=== PATIENT | female | born 1975 | race Caucasian/White ===

== ENCOUNTER 2016-12-03 16:18 | Emergency (ER) | payer BC ==
[2016-12-03 16:25] VITALS: BP 147/115
--- NOTE | 2016-12-03 16:26 | ED Physician Documentation ---
PD HPI FEMALE - Stated complaint Stated Complaint: FEMALE - Chief complaint Chief Complaint: General - History obtained from History obtained from: Patient - History of Present Illness Timing - onset: How many days ago (several) Timing - duration: Days Timing - details: Gradual onset, Still present (onset of redness and burning pain periurethral, worse with urinating, but also with wiping.) Associated symptoms: Vaginal pain, Vaginal discharge, Genital sore/lesion ( redness periurethral). No: Fever, Dysuria, Urinary frequency Similar symptoms before: Has not had sx before Recently seen: Clinic (walk in in [place] and Dx with apparent yeast infection. Not improved with Diflucan taken 2 days ago. Considerable discomfort and she says the rash/pain worsened a lot with use of topical lidocaine.) Review of Systems Constitutional: denies: Fever, Chills Throat: denies: Sore throat GI: denies: Vomiting, Diarrhea Skin: reports: Lesions (periurethral area). 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 : None HEENT: Dental implants Psych: Depression Musculoskeletal: None Derm: None - Past Surgical History Past Surgical History: Yes General: Bowel surgery Ortho: Other - Present Medications Home Medications: Ambulatory Orders Medication Instructions Recorded Confirmed Desvenlafaxine Succinate [Pristiq 100 mg PO DAILY 10/21/14 12/03/16 ER] Lisdexamfetamine Dimesylate 50 mg PO 0800,1200 10/21/14 12/03/16 [Vyvanse] Minocycline HCl 100 mg PO DAILY 10/21/14 12/03/16 Quetiapine Fumarate [Seroquel] 50 mg PO QPM 10/21/14 12/03/16 Spironolactone 50 mg PO DAILY 10/21/14 12/03/16 HYDROcod/ACETAM 5/325 [[place] 5/325] 1 ea PO Q6H PRN #15 tablet 10/05/15 12/03/16 - Allergies Allergies/Adverse Reactions: Allergies Allergy/AdvReac Type Severity Reaction Status Date / Time acetaminophen [From Lortab] Allergy Itching Verified 10/21/14 08:39 hydrocodone bitartrate * Allergy Itching Verified 09/09/15 08:39 [From Lortab] prednisone AdvReac Unknown Verified 10/05/15 10:01 - Social History Does the pt smoke?: No Smoking Status: Never smoker Does the pt drink ETOH?: No Does the pt have substance abuse?: No PD ED PE NORMAL - Vitals Vital signs reviewed: Yes - General General: Alert and oriented X 3, Well developed/nourished, Other (she is upset and tearful. Not in notable pain at the moment.) - HEENT HEENT: Pharynx benign - Neck Neck: Supple, no meningeal sign, No adenopathy - Abdomen Abdomen: Soft, Non tender - Female Female : Segmental Paver Installer present, Other (double check the diagnosis from Urgent Care couple days ago. There is redness with swelling periurethrally and inner labia, with some fissure lines superficially in mucosal folds periurethrally. Intravaginally with some thick to milky white discharge.) - Back Back: No CVA TTP - Derm Derm: Normal color, Warm and dry Results - Vitals Vitals: Oxygen O2 Source Room air - Labs Labs: Microbiology 12/03/16 16:52 Wet Prep - Final Genital - Cervix Laboratory Tests 12/03/16 16:52 C.trachomatis RNA (TMA) NOT DETECTED Chlamydia/GC Comment SEE NOTE N.gonorrhoeae RNA (TMA) NOT DETECTED PD MEDICAL DECISION MAKING - ED course Complexity details: considered differential (redness with swelling inner labial and periurethral with yeast-like white rash intravaginallly. There are fissures developed in mucosal folds periurethrally. Looks like yeast vulvovaginal rash. Intravaginal appears yeast white thicker, but some milky character as well. Await culture and wet prep. ), d/w patient Departure - Departure Disposition: 01 Home, Self Care Clinical Impression: Vulvovaginitis due to yeast Condition: Stable Record reviewed to determine appropriate education?: Yes Instructions: ED Vaginal Infec Fungal Cheryl, ED Vaginitis Vulvo Ch Follow-Up: DOM JONES MD [Primary Care Provider] - Comments: This does look like a yeast infection with the irritation and fissures in the creases. Those do look very painful. I would use the betamethasone and clotrimazole topically in the rash area and on the inner labial guevara 3-4 times daily for a few days until resolved. Use Tylenol or ibuprofen if needed for pains. Add the oxycodone just if needed for worse pain. I would use coolness such as cool towels or such to the area may help as well. Discharge Date/Time: 12/03/16 17:29
[2016-12-03] MEDS ORDERED: BETAMETHASONE AUG 0.05% CREAM 15 GM TUBE TOP STA (16:54)
[2016-12-03] MEDS ORDERED: oxyCODONE/ACET 5/325 Prepack 4 PO STA (16:54)
[2016-12-03] MEDS ORDERED: CLOTRIMAZOLE 1% CREAM 15 GM TUBE TOP STA (16:54)
== END 2016-12-03 17:29 | disposition home or self-care (01) ==
LOC: ED 16:18
DX: B37.3 Candidiasis of vulva and vagina (principal)
CPT/HCPCS: 87210; 87491; 87591; 99283; A9270

== ENCOUNTER 2017-07-23 21:06 | Emergency (ER) | payer BC ==
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
[2017-07-24] MEDS ORDERED: AZITHROMYCIN 250 MG TABLET PO STA (02:25)
[2017-07-24] MEDS ORDERED: LIDOCAINE 1% 2 ML VIAL SUBQ ONE (02:26)
[2017-07-24] MEDS ORDERED: cefTRIAXone 250 MG VIAL IM STA (02:26)
[2017-07-24] MEDS ORDERED: metroNIDAZOLE 250 MG TABLET PO STA (02:26)
[2017-07-24] MEDS ORDERED: LORazepam 0.5 MG TABLET PO STA (02:33)
[2017-07-24 03:19] VITALS: BP 140/107
[2017-07-25 13:36] LABS: HEPATITIS B SURFACE ANTIGEN NON-REACTIVE (NON-REACTIVE)
== END 2017-07-24 03:01 | disposition home or self-care (01) ==
LOC: ED 21:06
DX: T76.21XA Adult sexual abuse, suspected, initial encounter (principal); Z97.5 Presence of (intrauterine) contraceptive device
CPT/HCPCS: 36415; 86317; 86704; 87340; 96372; 99283; A9270

== ENCOUNTER 2018-04-09 07:33 | Outpatient (CLI) | payer BC | END 2018-04-09 07:34 | disposition short-term general hospital (02) | LOC: EMS 07:33 | PROVIDERS: ATTEND Surgery | DX: R07.89 Other chest pain (principal); R00.2 Palpitations; R42 Dizziness and giddiness | CPT/HCPCS: A0425; A0427 ==

== ENCOUNTER 2018-05-07 05:19 | Outpatient (CLI) | payer BC | END 2018-05-07 05:20 | disposition critical access hospital (66) | LOC: EMS 05:19 | PROVIDERS: ATTEND Surgery | DX: R42 Dizziness and giddiness (principal); R07.2 Precordial pain; R06.02 Shortness of breath; R50.9 Fever, unspecified; R11.10 Vomiting, unspecified | CPT/HCPCS: A0425; A0427 ==

== ENCOUNTER 2018-05-07 05:53 | Emergency (ER) | payer BC ==
[2018-05-07] MEDS ORDERED: SODIUM CHLORIDE 0.9% 1,000 ML IV ONE ×2 (06:00→10:04)
[2018-05-07] MEDS ORDERED: PROMETHAZINE INJ 12.5 MG in SODIUM CHLORIDE 0.9% 50 ML IV STA (06:00)
[2018-05-07] MEDS ORDERED: ONDANSETRON 4 MG/2 ML VIAL IVP STA ×2 (06:00→10:55)
--- NOTE | 2018-05-07 06:35 | XRAY Report ---
Reason: chest pain Procedure Date: 05/07/2018 Accession Number: [id number] / [id number] Procedure: XR - Chest 1 View X-Ray CPT Code: 48548 FULL RESULT: EXAM: CHEST RADIOGRAPHY EXAM DATE: 05/07/2018 06:21 AM. CLINICAL HISTORY: Chest pain. COMPARISON: XR ACUTE ABDOMEN SERIES 03/01/2010 12:17 PM. TECHNIQUE: 1 view. FINDINGS: Lungs/Pleura: No focal opacities evident. No pleural effusion. No pneumothorax. Mediastinum: Likely small hiatal hernia. No cardiomegaly. Other: None. IMPRESSION: Likely small hiatal hernia. No evidence of acute cardiopulmonary disease. RADIA
--- NOTE | 2018-05-07 06:37 | ED Physician Documentation ---
History of Present Illness - Stated complaint Stated Complaint: DIZZY - Chief complaint Chief Complaint: General - History obtained from History obtained from: Patient - History of Present Illness Timing: How many hours ago (4) Pain level max: 0 Pain level now: 0 Severity Comments: mild Quality: dizziness, lightheadedness Radiates to: nonradiating Improved by: laying down Worsened by: Standing Associated symptoms: Shortness of breath Review of Systems Ten Systems: 10 systems reviewed and negative Constitutional: reports: Reviewed and negative Eyes: reports: Reviewed and negative Ears: reports: Reviewed and negative Nose: reports: Reviewed and negative Throat: reports: Reviewed and negative Cardiac: reports: Reviewed and negative Respiratory: reports: Reviewed and negative GI: reports: Reviewed and negative : reports: Reviewed and negative Skin: reports: Reviewed and negative Musculoskeletal: reports: Reviewed and negative Neurologic: reports: Reviewed and negative Psychiatric: reports: Reviewed and negative Endocrine: reports: Reviewed and negative Immunocompromised: reports: Reviewed and negative PD PAST MEDICAL HISTORY - Past Medical History Past Medical History: Yes Cardiovascular: None Respiratory: None Neuro: None Endocrine/Autoimmune: None GI: Ulcerative colitis 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 HEENT: Dental implants Psych: Depression Musculoskeletal: None Derm: None - Past Surgical History Past Surgical History: Yes General: Bowel surgery Ortho: Other - Present Medications Home Medications: Ambulatory Orders Medication Instructions Recorded Confirmed Desvenlafaxine Succinate [Pristiq 100 mg PO DAILY 10/21/14 12/03/16 ER] Lisdexamfetamine Dimesylate 50 mg PO 0800,1200 10/21/14 12/03/16 [Vyvanse] Minocycline HCl 100 mg PO DAILY 10/21/14 12/03/16 Quetiapine Fumarate [Seroquel] 50 mg PO QPM 10/21/14 12/03/16 Spironolactone 50 mg PO DAILY 10/21/14 12/03/16 HYDROcod/ACETAM 5/325 [[place] 5/325] 1 ea PO Q6H PRN #15 tablet 10/05/15 12/03/16 LORazepam [Ativan] 0.5 mg PO Q6H PRN #20 tablet 07/24/17 Ondansetron Odt [Zofran] 4 mg TL Q6H PRN #10 tablet 05/07/18 - Allergies Allergies/Adverse Reactions: Allergies Allergy/AdvReac Type Severity Reaction Status Date / Time acetaminophen [From Lortab] Allergy Itching Verified 07/23/17 21:13 hydrocodone bitartrate * Allergy Itching Verified 07/23/17 21:13 [From Lortab] prednisone AdvReac Unknown Verified 07/23/17 21:13 - Social History Does the pt smoke?: No Smoking Status: Never smoker Does the pt drink ETOH?: No Does the pt have substance abuse?: No - Family History Family history: reports: Other (Reviewed and not pertinent) - Immunizations Immunizations are current?: No - POLST Patient has POLST: No PD ED PE NORMAL - Vitals Vital signs reviewed: Yes - General General: Alert and oriented X 3, No acute distress - HEENT HEENT: PERRL - Neck Neck: Supple, no meningeal sign - Cardiac Cardiac: RRR, No murmur - Respiratory Respiratory: Clear bilaterally - Abdomen Abdomen: Normal bowel sounds, Soft, Non tender, Non distended - Derm Derm: Warm and dry - Extremities Extremities: No deformity - Neuro Neuro: Alert and oriented X 3 - Psych Psych: Normal mood, Normal affect Results - Vitals Vitals: Vital Signs - 24 hr 05/07/18 05/07/18 05/07/18 06:15 06:38 06:39 Temperature 36.5 C Heart Rate 89 84 82 Respiratory 16 16 16 Rate Blood Pressure 117/89 H 111/90 H O2 Saturation 100 98 97 05/07/18 05/07/18 05/07/18 07:03 07:34 08:00 Temperature Heart Rate 82 83 76 Respiratory 16 16 16 Rate Blood Pressure 121/86 H 120/96 H 117/85 H O2 Saturation 99 98 99 05/07/18 05/07/18 05/07/18 10:00 11:00 13:00 Temperature Heart Rate 77 69 74 Respiratory 16 18 18 Rate Blood Pressure 108/81 H 113/86 H 101/61 O2 Saturation 98 98 05/07/18 14:09 Temperature Heart Rate 71 Respiratory 16 Rate Blood Pressure 121/87 H O2 Saturation 96 Oxygen O2 Source Room air - Labs Labs: Laboratory Tests 05/07/18 05/07/18 05/07/18 06:20 07:50 07:50 WBC 3.1 L RBC 3.75 L Hgb 10.6 L Hct 32.8 L MCV 87.6 MCH 28.3 MCHC 32.3 RDW 19.1 H Plt Count 125 L MPV 9.0 Neut # (Auto) 2.1 Lymph # (Auto) 0.5 L [place] # (Auto) 0.5 Eos # (Auto) 0.0 Baso # (Auto) 0.0 Absolute Nucleated RBC 0.00 Nucleated RBC % 0.0 D-Dimer Sodium 132 L Potassium 4.0 Chloride 95 L Carbon Dioxide 24 Anion Gap 13.0 BUN 13 Creatinine 0.4 Estimated GFR (MDRD) 174 Glucose 79 Calcium 7.3 L Total Bilirubin 1.2 H AST 210 H ALT 78 H Alkaline Phosphatase 77 Troponin I Total Protein 5.9 L Albumin 3.3 Globulin 2.6 Albumin/Globulin Ratio 1.3 Lipase 48 Urine Color Urine Clarity Urine pH Ur Specific [place] Urine Protein Urine Glucose (UA) Urine Ketones Urine Occult Blood Urine Nitrite Urine Bilirubin Urine Urobilinogen Ur Leukocyte Esterase Ur Microscopic Review Urine Culture Comments Influenza A (Rapid) Negative Influenza B (Rapid) Negative 05/07/18 05/07/18 05/07/18 07:50 07:50 12:25 WBC RBC Hgb Hct MCV MCH MCHC RDW Plt Count MPV Neut # (Auto) Lymph # (Auto) [place] # (Auto) Eos # (Auto) Baso # (Auto) Absolute Nucleated RBC Nucleated RBC % D-Dimer 311.4 H Sodium Potassium Chloride Carbon Dioxide Anion Gap BUN Creatinine Estimated GFR (MDRD) Glucose Calcium Total Bilirubin AST ALT Alkaline Phosphatase Troponin I < 0.04 Total Protein Albumin Globulin Albumin/Globulin Ratio Lipase Urine Color DARK YELLOW Urine Clarity CLEAR Urine pH 6.0 Ur Specific [place] >=1.030 H Urine Protein TRACE Urine Glucose (UA) NEGATIVE Urine Ketones >=80 H Urine Occult Blood NEGATIVE Urine Nitrite NEGATIVE Urine Bilirubin NEGATIVE Urine Urobilinogen 0.2 (NORMAL) Ur Leukocyte Esterase NEGATIVE Ur Microscopic Review NOT INDICATED Urine Culture Comments NOT INDICATED Influenza A (Rapid) Influenza B (Rapid) PD MEDICAL DECISION MAKING - ED course Complexity details: reviewed results, re-evaluated patient, considered differential, d/w patient ED course: 42-year-old female with generalized weakness and lightheadedness. Labs pending at time of sign out to incoming provider. Departure - Departure Disposition: 01 Home, Self Care Clinical Impression: Vomiting, Dehydration Condition: Stable Instructions: ED Dehydration Follow-Up: SATNAM DUNN MD [Primary Care Provider] - Prescriptions: Ondansetron Odt [Zofran] 4 mg TL Q6H PRN #10 tablet PRN Reason: Nausea / Vomiting Discharge Date/Time: 05/07/18 14:09
[2018-05-07 08:00] LABS: BASOPHILS % (AUTO) 1.5 %; EOSINOPHILS % (AUTO) 1.1 %; HGB - HEMOGLOBIN 10.6 g/dL (12.0-16.0); LYMPHOCYTES # (AUTO) 0.5 10^3/uL (1.5-3.5); LYMPHOCYTES % (AUTO) 15.3 %; MEAN CORPUSCULAR HEMOGLOBIN 28.3 pg (27.0-31.0); MEAN CORPUSCULAR HGB CONC 32.3 g/dL (32.0-36.0); MEAN CORPUSCULAR VOLUME 87.6 fL (81.0-99.0); MONOCYTES # (AUTO) 0.5 10^3/uL (0.0-1.0); MONOCYTES % (AUTO) 16.1 %; NEUTROPHILS # (AUTO) 2.1 10^3/uL (1.5-6.6); PLT - PLATELET COUNT 125 10^3/uL (130-450); RED BLOOD COUNT 3.75 10^6/uL (4.20-5.40); RED CELL DISTRIBUTION WIDTH 19.1 % (12.0-15.0); WHITE BLOOD COUNT 3.1 x10^3/uL (4.8-10.8)
[2018-05-07 08:08] LABS: ALBUMIN 3.3 g/dL (3.2-5.5); ALBUMIN/GLOBULIN RATIO 1.3 (1.0-2.2); BILIRUBIN,TOTAL 1.2 mg/dL (0.2-1.0); CALCIUM 7.3 mg/dL (8.5-10.3); CREATININE 0.4 mg/dL (0.4-1.0); TOTAL PROTEIN 5.9 g/dL (6.7-8.2)
[2018-05-07 12:38] LABS: GLUCOSE, URINE (UA) NEGATIVE (NEGATIVE); KETONES,URINE (UA) >=80 mg/dL (NEGATIVE); LEUKOCYTE ESTERASE, URINE NEGATIVE (NEGATIVE); NITRITE,URINE NEGATIVE (NEGATIVE); OCCULT BLOOD,URINE NEGATIVE (NEGATIVE); PROTEIN,URINE TRACE mg/dL (NEGATIVE); UROBILINOGEN,URINE 0.2 (NORMAL) E.U./dL (NORMAL)
[2018-05-07] MEDS ORDERED: IOPAMIDOL-300 100 ML VIAL ONE (12:49)
[2018-05-07 12:54] LABS: BILIRUBIN,URINE NEGATIVE (NEGATIVE); CLARITY,URINE CLEAR (CLEAR); ICTOTEST,URINE NEGATIVE
[2018-05-07] MEDS ORDERED: IOPAMIDOL-300 100 ML VIAL IVP ONE (13:28)
--- NOTE | 2018-05-07 13:39 | CT Report ---
Reason: dyspnea tachy elevated d-dimer Procedure Date: 05/07/2018 Accession Number: [id number] / [id number] Procedure: CT - ANGIO CHEST W/WO CPT Code: FULL RESULT: EXAM: CT ANGIOGRAM CHEST EXAM DATE: 05/07/2018 01:05 PM. CLINICAL HISTORY: Dyspnea tachy elevated d-dimer. COMPARISON: CHEST 1 VIEW 05/07/2018 6:07 AM. TECHNIQUE: Routine helical imaging was performed through the chest in the pulmonary arterial phase. IV Contrast: ISOVUE 300 80mL. Reconstructions: Coronal 3-D MIP reconstructions.Sagittal and coronal. In accordance with CT protocol optimization, one or more of the following dose reduction techniques were utilized for this exam: automated exposure control, adjustment of mA and/or KV based on patient size, or use of iterative reconstructive technique. FINDINGS: Pulmonary Arteries: Diagnostic quality: Mildly limited due to motion artifact. No pulmonary emboli are identified through the proximal segmental level. RV/LV is within normal limits. There is no interventricular septal bowing. There is no reflux of contrast material in the IVC. Lungs/Pleura: The lungs are clear aside from mild dependent atelectasis. No consolidation, pleural effusion or pneumothorax. The airways are patent. No mass. Mediastinum: The heart is normal in size. There is no pericardial effusion. No lymphadenopathy. There is a moderate to large hiatal hernia. Thoracic esophagus appears mildly thickened. Thoracic Aorta: Unremarkable. Upper Abdomen: Diffusely hypoattenuating liver parenchyma noted. Other: Breast implants in place. IMPRESSION: 1. No pulmonary emboli identified. Mildly limited exam due to motion artifact. 2. Moderate to large hiatal hernia. The thoracic esophagus appears mildly thickened, which could be due to esophagitis or reflux. 3. Hepatic steatosis. RADIA
--- NOTE | 2018-05-07 13:48 | ED Physician Documentation ---
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 HEENT: Dental implants Psych: Depression Musculoskeletal: None Derm: None - Past Surgical History Past Surgical History: Yes General: Bowel surgery Ortho: Other - Present Medications Home Medications: Ambulatory Orders Medication Instructions Recorded Confirmed Desvenlafaxine Succinate [Pristiq 100 mg PO DAILY 10/21/14 12/03/16 ER] Lisdexamfetamine Dimesylate 50 mg PO 0800,1200 10/21/14 12/03/16 [Vyvanse] Minocycline HCl 100 mg PO DAILY 10/21/14 12/03/16 Quetiapine Fumarate [Seroquel] 50 mg PO QPM 10/21/14 12/03/16 Spironolactone 50 mg PO DAILY 10/21/14 12/03/16 HYDROcod/ACETAM 5/325 [[place] 5/325] 1 ea PO Q6H PRN #15 tablet 10/05/15 12/03/16 LORazepam [Ativan] 0.5 mg PO Q6H PRN #20 tablet 07/24/17 Ondansetron Odt [Zofran] 4 mg TL Q6H PRN #10 tablet 05/07/18 - Allergies Allergies/Adverse Reactions: Allergies Allergy/AdvReac Type Severity Reaction Status Date / Time acetaminophen [From Lortab] Allergy Itching Verified 07/23/17 21:13 hydrocodone bitartrate * Allergy Itching Verified 07/23/17 21:13 [From Lortab] prednisone AdvReac Unknown Verified 07/23/17 21:13 - Social History Does the pt smoke?: No Smoking Status: Never smoker Does the pt drink ETOH?: No Does the pt have substance abuse?: No - Immunizations Immunizations are current?: No - POLST Patient has POLST: No Results - Vitals Vitals: Vital Signs - 24 hr 05/07/18 05/07/18 05/07/18 06:15 06:38 06:39 Temperature 36.5 C Heart Rate 89 84 82 Respiratory 16 16 16 Rate Blood Pressure 117/89 H 111/90 H O2 Saturation 100 98 97 0305/07/18 05/07/18 07:03 07:34 08:00 Temperature Heart Rate 82 83 76 Respiratory 16 16 16 Rate Blood Pressure 121/86 H 120/96 H 117/85 H O2 Saturation 99 98 99 05/07/18 05/07/18 05/07/18 10:00 11:00 13:00 Temperature Heart Rate 77 69 74 Respiratory 16 18 18 Rate Blood Pressure 108/81 H 113/86 H 101/61 O2 Saturation 98 98 Oxygen O2 Source Room air - Labs Labs: Laboratory Tests 05/07/18 05/07/18 05/07/18 06:20 07:50 07:50 WBC 3.1 L RBC 3.75 L Hgb 10.6 L Hct 32.8 L MCV 87.6 MCH 28.3 MCHC 32.3 RDW 19.1 H Plt Count 125 L MPV 9.0 Neut # (Auto) 2.1 Lymph # (Auto) 0.5 L [place] # (Auto) 0.5 Eos # (Auto) 0.0 Baso # (Auto) 0.0 Absolute Nucleated RBC 0.00 Nucleated RBC % 0.0 D-Dimer Sodium 132 L Potassium 4.0 Chloride 95 L Carbon Dioxide 24 Anion Gap 13.0 BUN 13 Creatinine 0.4 Estimated GFR (MDRD) 174 Glucose 79 Calcium 7.3 L Total Bilirubin 1.2 H AST 210 H ALT 78 H Alkaline Phosphatase 77 Troponin I Total Protein 5.9 L Albumin 3.3 Globulin 2.6 Albumin/Globulin Ratio 1.3 Lipase 48 Urine Color Urine Clarity Urine pH Ur Specific [place] Urine Protein Urine Glucose (UA) Urine Ketones Urine Occult Blood Urine Nitrite Urine Bilirubin Urine Urobilinogen Ur Leukocyte Esterase Ur Microscopic Review Urine Culture Comments Influenza A (Rapid) Negative Influenza B (Rapid) Negative 05/07/18 05/07/18 05/07/18 07:50 07:50 12:25 WBC RBC Hgb Hct MCV MCH MCHC RDW Plt Count MPV Neut # (Auto) Lymph # (Auto) [place] # (Auto) Eos # (Auto) Baso # (Auto) Absolute Nucleated RBC Nucleated RBC % D-Dimer 311.4 H Sodium Potassium Chloride Carbon Dioxide Anion Gap BUN Creatinine Estimated GFR (MDRD) Glucose Calcium Total Bilirubin AST ALT Alkaline Phosphatase Troponin I < 0.04 Total Protein Albumin Globulin Albumin/Globulin Ratio Lipase Urine Color DARK YELLOW Urine Clarity CLEAR Urine pH 6.0 Ur Specific [place] >=1.030 H Urine Protein TRACE Urine Glucose (UA) NEGATIVE Urine Ketones >=80 H Urine Occult Blood NEGATIVE Urine Nitrite NEGATIVE Urine Bilirubin NEGATIVE Urine Urobilinogen 0.2 (NORMAL) Ur Leukocyte Esterase NEGATIVE Ur Microscopic Review NOT INDICATED Urine Culture Comments NOT INDICATED Influenza A (Rapid) Influenza B (Rapid) - Rads (name of study) CTA chest Radiology: Prelim report reviewed (Impression: 1. No pulmonary emboli identified. Mildly limited exam due to motion artifact. 2. Moderate to large hiatal hernia. Thoracic esophagus appears mildly thickened, which could be due to esophagitis or reflux. 3. Hepatic steatosis.), EMP read indepedently, See rad report Procedures - IVC sono (time) 1300 Bedside IVC sono: IVC measures (cm) (1.94), Euvolemia PD MEDICAL DECISION MAKING - ED course Complexity details: considered differential, d/w patient, d/w family ED course: 42-year-old female with acute nausea and vomiting appears dehydrated and she is administered saline with improvement in her hydration. She has had an episode of chest pain with dyspnea and this was the second episode in the past month and her d-dimer was elevated and she did not have PE on exam. She does have fatty infiltrate of the liver and elevated transamminases and she has had this previously as well. She will follow up with her PMD as well as the project construction manager. Departure - Departure Disposition: 01 Home, Self Care Clinical Impression: Vomiting, Dehydration Condition: Stable Instructions: ED Dehydration Follow-Up: SATNAM DUNN MD [Primary Care Provider] - Prescriptions: Ondansetron Odt [Zofran] 4 mg TL Q6H PRN #10 tablet PRN Reason: Nausea / Vomiting
[2018-05-07 14:10] VITALS: BP 121/87
== END 2018-05-07 14:09 | disposition home or self-care (01) ==
LOC: EDUNIT# → ED 05:53
DX: E86.0 Dehydration (principal); R11.2 Nausea with vomiting, unspecified; R53.1 Weakness; R42 Dizziness and giddiness; R07.9 Chest pain, unspecified; R06.00 Dyspnea, unspecified; R79.89 Other specified abnormal findings of blood chemistry; K76.0 Fatty (change of) liver, not elsewhere classified; R74.0 Nonspecific elevation of levels of transaminase and lactic acid dehydrogenase [LDH]; K44.9 Diaphragmatic hernia without obstruction or gangrene
CPT/HCPCS: 36415; 71045; 71275; 80053; 81001; 81003; 83690; 84484; 85025; 85379; 87086; 87275; 87276; 93005; 96361; 96365; 96375; 96376; 99283; 99284

== ENCOUNTER 2018-06-21 02:24 | Outpatient (CLI) | payer BC | END 2018-06-21 02:25 | disposition critical access hospital (66) | LOC: EMS 02:24 | PROVIDERS: ATTEND Surgery | DX: T43.592A Poisoning by other antipsychotics and neuroleptics, intentional self-harm, initial encounter (principal) | CPT/HCPCS: A0425; A0429 ==

== ENCOUNTER 2018-06-21 02:56 | Emergency (ER) | payer BC ==
[2018-06-21] MEDS ORDERED: MAG HYDROX/AL HYDROX/SIMETH 30 ML UDC PO STA ×2 (03:30→11:31)
[2018-06-21] MEDS ORDERED: LIDOCAINE VISCOUS 2% 15 ML UDC MM STA (03:30)
[2018-06-21 04:06] LABS: BASOPHILS # (AUTO) 0.1 10^3/uL (0.0-0.1); BASOPHILS % (AUTO) 3.2 %; EOSINOPHILS # (AUTO) 0.1 10^3/uL (0.0-0.7); EOSINOPHILS % (AUTO) 3.4 %; HGB - HEMOGLOBIN 12.1 g/dL (12.0-16.0); LYMPHOCYTES # (AUTO) 1.1 10^3/uL (1.5-3.5); LYMPHOCYTES % (AUTO) 31.3 %; MEAN CORPUSCULAR HEMOGLOBIN 27.8 pg (27.0-31.0); MEAN CORPUSCULAR HGB CONC 32.5 g/dL (32.0-36.0); MEAN CORPUSCULAR VOLUME 85.4 fL (81.0-99.0); MEAN PLATELET VOLUME 8.6 fL (7.9-10.8); MONOCYTES # (AUTO) 0.4 10^3/uL (0.0-1.0); MONOCYTES % (AUTO) 10.5 %; NEUTROPHILS # (AUTO) 1.8 10^3/uL (1.5-6.6); NEUTROPHILS % (AUTO) 51.6 %; PLT - PLATELET COUNT 232 10^3/uL (130-450); RED BLOOD COUNT 4.33 10^6/uL (4.20-5.40); RED CELL DISTRIBUTION WIDTH 17.1 % (12.0-15.0); WHITE BLOOD COUNT 3.4 x10^3/uL (4.8-10.8)
[2018-06-21 04:21] LABS: ACETAMINOPHEN < 10 ug/mL (10-30); ALBUMIN 3.6 g/dL (3.2-5.5); ALBUMIN/GLOBULIN RATIO 1.1 (1.0-2.2); ALKALINE PHOSPHATASE 58 IU/L (42-121); ALT ALANINE AMINOTRANSFERASE 48 IU/L (10-60); AST ASPARTATE AMINOTRANSFERASE 90 IU/L (10-42); BILIRUBIN,TOTAL 0.5 mg/dL (0.2-1.0); BUN - BLOOD UREA NITROGEN 12 mg/dL (6-20); CALCIUM 8.7 mg/dL (8.5-10.3); CARBON DIOXIDE - CO2 24 mmol/L (21-32); CHLORIDE 102 mmol/L (101-111); CREATININE 0.4 mg/dL (0.4-1.0); GFR - MDRD 174 (>89); GLUCOSE 94 mg/dL (70-100); LIPASE 51 U/L (22-51); SALICYLATE < 6.0 mg/dL; SODIUM 141 mmol/L (135-145); TOTAL PROTEIN 6.8 g/dL (6.7-8.2)
[2018-06-21 04:27] LABS: MUDS CUTOFF CONCENTRATIONS CUTOFF CONC BELOW:
[2018-06-21 04:29] LABS: BILIRUBIN,URINE NEGATIVE (NEGATIVE); GLUCOSE, URINE (UA) NEGATIVE (NEGATIVE); KETONES,URINE (UA) NEGATIVE (NEGATIVE); LEUKOCYTE ESTERASE, URINE NEGATIVE (NEGATIVE); NITRITE,URINE NEGATIVE (NEGATIVE); OCCULT BLOOD,URINE NEGATIVE (NEGATIVE); PH,URINE 6.5 PH (5.0-7.5); PROTEIN,URINE TRACE mg/dL (NEGATIVE); UROBILINOGEN,URINE 0.2 (NORMAL) E.U./dL (NORMAL)
[2018-06-21 04:30] LABS: CLARITY,URINE CLEAR (CLEAR); HCG UR QUAL NEGATIVE
[2018-06-21 04:42] LABS: AMPHETAMINE SCREEN,URINE NEGATIVE (NEGATIVE); BENZODIAZEPINES SCREEN, URINE NEGATIVE (NEGATIVE); COCAINE SCREEN URINE NEGATIVE (NEGATIVE); METHADONE SCREEN, URINE NEGATIVE (NEGATIVE); METHAMPHETAMINES SCREEN, URINE NEGATIVE (NEGATIVE); OPIATE SCREEN, URINE NEGATIVE (NEGATIVE); OXYCODONE SCREEN, URINE NEGATIVE (NEGATIVE); PROPOXYPHENE SCREEN, URINE NEGATIVE (NEGATIVE); TRICYCLIC ANTIDEPRESSANT,URINE NEGATIVE (NEGATIVE)
[2018-06-21] MEDS ORDERED: LORazepam 1 MG TABLET PO STA (04:59)
--- NOTE | 2018-06-21 05:43 | ED Physician Documentation ---
<Duglas Maldonado - Last Filed: 06/21/18 16:51> PD HPI OVERDOSE - Stated complaint Stated Complaint: OD - Chief complaint Chief Complaint: MHE - History obtained from History obtained from: Patient - History of Present Illness Timing - onset: How many hours ago (She had drank alcohol and was taking extra Seroquel tablets. She called and talked with someone about her feeling upset, and that person called EMS.), Today Subtance(s) ingested: Single (5 tablets of Seroquel), EtOH Associated symptoms: Altered mental status, Agitated. No: Resp depression, Decreased responsiveness Contributing factors: Depresssed (She has been feeling depressed for a while. She is having social stresses of going through divorce and poor interactions with her . She states her father recently had a heart attack and was in the hospital and that gave her stress as well.), Suicidal. No: Alchoholic Similar symptoms before: Has not had sx before Review of Systems Constitutional: denies: Fever Nose: denies: Rhinorrhea / runny nose, Congestion Throat: denies: Sore throat Cardiac: denies: Chest pain / pressure, Palpitations Respiratory: denies: Dyspnea, Cough GI: reports: Nausea. denies: Abdominal Pain, Vomiting Neurologic: reports: Generalized weakness, Altered mental status (feeling sleepy and confused, not quite sure how EMS got to where she was, who called.). denies: Focal weakness, Numbness, Headache, Head injury Psychiatric: reports: Depressed, Suicidal, Anxiety. 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 : None HEENT: Dental implants Psych: Depression, Anxiety, Eating disorder Musculoskeletal: None Derm: None - Past Surgical History Past Surgical History: Yes General: Bowel surgery Ortho: Other - Present Medications Home Medications: Ambulatory Orders Medication Instructions Recorded Confirmed Desvenlafaxine Succinate [Pristiq 100 mg PO DAILY 10/21/14 06/21/18 ER] Lisdexamfetamine Dimesylate 50 mg PO 0800,1200 10/21/14 06/21/18 [Vyvanse] Quetiapine Fumarate [Seroquel] 50 mg PO QPM 10/21/14 06/21/18 RX: Spironolactone 150 mg PO DAILY 10/21/14 06/21/18 Ondansetron Odt [Zofran] 4 mg TL Q6H PRN #10 tablet 05/07/18 06/21/18 Dextroamphetamine/Amphetamine 06/21/18 [Adderall 10 mg Tablet] Esomeprazole Magnesium [Nexium] 40 mg PO 06/21/18 06/21/18 Prazosin HCl [Minipress] 2 mg PO 06/21/18 RX: Acyclovir 400 mg PO 06/21/18 RX: Milk Thistle 06/21/18 raNITIdine [Zantac] 300 mg PO BID 06/21/18 06/21/18 - Allergies Allergies/Adverse Reactions: Allergies Allergy/AdvReac Type Severity Reaction Status Date / Time acetaminophen [From Lortab] Allergy Itching Verified 07/23/17 21:13 hydrocodone bitartrate * Allergy Itching Verified 07/23/17 21:13 [From Lortab] prednisone AdvReac Unknown Verified 07/23/17 21:13 - Social History Does the pt smoke?: Yes Smoking Status: Current some day smoker Does the pt drink ETOH?: No Does the pt have substance abuse?: No - Immunizations Immunizations are current?: No - POLST Patient has POLST: No PD ED PE NORMAL - Vitals Vital signs reviewed: Yes - General General: Well developed/nourished, Other (She is tearful and upset and crying. She is able to answer questions appropriately though there is some slurring of speech consistent with alcohol intoxication.) - HEENT HEENT: Atraumatic, PERRL, EOMI (no nystagmus), Pharynx benign - Neck Neck: Supple, no meningeal sign, No adenopathy - Cardiac Cardiac: RRR, No murmur - Respiratory Respiratory: Clear bilaterally - Abdomen Abdomen: Normal bowel sounds, Soft, Non tender, Non distended - Back Back: No CVA TTP - Derm Derm: Normal color, Warm and dry - Neuro Neuro: Alert and oriented X 3 (with just some somnolence. ), due diligence coordinator 2-12 intact, No motor deficit, Normal speech PD MEDICAL DECISION MAKING - ED course Complexity details: reviewed results, re-evaluated patient (Patient is more relaxed and dozing. Awaiting Social Work evaluation (which would not need BA to be legal number per se). Final dispo per Dr. Gutierrez aftert verbal handoff. ), considered differential (She did have an intentional overdose and its unclear on her motivation. She to me at one point said she just wanted to sleep but with EMS had stated more of a suicidal ideation. She certainly is at risk for further self-harm while she is intoxicated and I feel she had least needs to be held in the ER long enough for sobering and then evaluation by social media designer reassessment by physician or both.), d/w patient Departure - Departure Disposition: 01 Home, Self Care Clinical Impression: Intentional overdose of drug in tablet form, Alcohol intoxication, Reactive depression (situational) Condition: Stable Record reviewed to determine appropriate education?: Yes Instructions: ED Depression, ED Overdose Intentional Comments: Follow-up with your counselor as discussed with the associate medical director. Return to the emergency department if feeling increasingly depressed or having increasing thoughts of suicide, or otherwise worsening symptoms. Discharge Date/Time: 06/21/18 12:06 <Kennedy Gutierrez - Last Filed: 06/23/18 22:57> Results - Vitals Vitals: Oxygen O2 Source Room air - Labs Labs: Laboratory Tests 06/21/18 06/21/18 06/21/18 03:59 03:59 03:59 WBC 3.4 L RBC 4.33 Hgb 12.1 Hct 37.0 MCV 85.4 MCH 27.8 MCHC 32.5 RDW 17.1 H Plt Count 232 MPV 8.6 Neut # (Auto) 1.8 Lymph # (Auto) 1.1 L [place] # (Auto) 0.4 Eos # (Auto) 0.1 Baso # (Auto) 0.1 Absolute Nucleated RBC 0.00 Nucleated RBC % 0.0 Sodium 141 Potassium 3.6 Chloride 102 Carbon Dioxide 24 Anion Gap 15.0 H BUN 12 Creatinine 0.4 Estimated GFR (MDRD) 174 Glucose 94 Calcium 8.7 Total Bilirubin 0.5 AST 90 H ALT 48 Alkaline Phosphatase 58 Total Protein 6.8 Albumin 3.6 Globulin 3.2 Albumin/Globulin Ratio 1.1 Lipase 51 TSH 1.53 Urine Color Urine Clarity Urine pH Ur Specific [place] Urine Protein Urine Glucose (UA) Urine Ketones Urine Occult Blood Urine Nitrite Urine Bilirubin Urine Urobilinogen Ur Leukocyte Esterase Ur Microscopic Review Urine Culture Comments Urine HCG, Qual Salicylates < 6.0 Urine Opiates Screen Ur Oxycodone Screen Urine Methadone Screen Ur Propoxyphene Screen Acetaminophen < 10 L Ur Barbiturates Screen Ur Tricyclics Screen Ur Phencyclidine Scrn Ur Amphetamine Screen U Methamphetamines Scrn U Benzodiazepines Scrn Urine Cocaine Screen U Cannabinoids Screen Ethyl Alcohol 283.2 06/21/18 06/21/18 04:20 04:25 WBC RBC Hgb Hct MCV MCH MCHC RDW Plt Count MPV Neut # (Auto) Lymph # (Auto) [place] # (Auto) Eos # (Auto) Baso # (Auto) Absolute Nucleated RBC Nucleated RBC % Sodium Potassium Chloride Carbon Dioxide Anion Gap BUN Creatinine Estimated GFR (MDRD) Glucose Calcium Total Bilirubin AST ALT Alkaline Phosphatase Total Protein Albumin Globulin Albumin/Globulin Ratio Lipase TSH Urine Color YELLOW Urine Clarity CLEAR Urine pH 6.5 Ur Specific [place] 1.015 Urine Protein TRACE Urine Glucose (UA) NEGATIVE Urine Ketones NEGATIVE Urine Occult Blood NEGATIVE Urine Nitrite NEGATIVE Urine Bilirubin NEGATIVE Urine Urobilinogen 0.2 (NORMAL) Ur Leukocyte Esterase NEGATIVE Ur Microscopic Review NOT INDICATED Urine Culture Comments NOT INDICATED Urine HCG, Qual NEGATIVE Salicylates Urine Opiates Screen NEGATIVE Ur Oxycodone Screen NEGATIVE Urine Methadone Screen NEGATIVE Ur Propoxyphene Screen NEGATIVE Acetaminophen Ur Barbiturates Screen NEGATIVE Ur Tricyclics Screen NEGATIVE Ur Phencyclidine Scrn NEGATIVE Ur Amphetamine Screen NEGATIVE U Methamphetamines Scrn NEGATIVE U Benzodiazepines Scrn NEGATIVE Urine Cocaine Screen NEGATIVE U Cannabinoids Screen NEGATIVE Ethyl Alcohol PD MEDICAL DECISION MAKING - ED course ED course: At change of shift the patient's care was turned over to pa pending evaluation by the associate medical director. Based on her recommendation, the patient is being discharged with follow-up appointment for outpatient psychiatric counseling. The patient denies active suicidal ideation, and agrees to no harm contract.
[2018-06-21 12:05] VITALS: BP 125/80
== END 2018-06-21 12:06 | disposition home or self-care (01) ==
LOC: EDUNIT# → ED 02:56
DX: T43.592A Poisoning by other antipsychotics and neuroleptics, intentional self-harm, initial encounter (principal); F43.21 Adjustment disorder with depressed mood; F10.129 Alcohol abuse with intoxication, unspecified; F17.200 Nicotine dependence, unspecified, uncomplicated
CPT/HCPCS: 36415; 80320; 80329; 81003; 81025; 83690; 99283; A9270; J8499; 80053; 80306; 80307; 81001; 84443; 85025; 87086

== ENCOUNTER 2018-07-18 22:01 | Outpatient (CLI) | payer BC | END 2018-07-18 22:02 | disposition critical access hospital (66) | LOC: EMS 22:01 | PROVIDERS: ATTEND Surgery | DX: R41.82 Altered mental status, unspecified (principal); R53.1 Weakness; R19.7 Diarrhea, unspecified | CPT/HCPCS: A0425; A0429 ==

== ENCOUNTER 2018-07-18 22:40 | Emergency (ER) | payer BC ==
[2018-07-18 23:04] LABS: BASOPHILS # (AUTO) 0.1 10^3/uL (0.0-0.1); BASOPHILS % (AUTO) 3.3 %; EOSINOPHILS % (AUTO) 1.5 %; HGB - HEMOGLOBIN 12.7 g/dL (12.0-16.0); LYMPHOCYTES # (AUTO) 0.9 10^3/uL (1.5-3.5); LYMPHOCYTES % (AUTO) 29.8 %; MEAN CORPUSCULAR HEMOGLOBIN 28.2 pg (27.0-31.0); MEAN CORPUSCULAR HGB CONC 33.1 g/dL (32.0-36.0); MEAN CORPUSCULAR VOLUME 85.2 fL (81.0-99.0); MEAN PLATELET VOLUME 8.4 fL (7.9-10.8); MONOCYTES # (AUTO) 0.2 10^3/uL (0.0-1.0); MONOCYTES % (AUTO) 6.9 %; NEUTROPHILS # (AUTO) 1.8 10^3/uL (1.5-6.6); NEUTROPHILS % (AUTO) 58.5 %; PLT - PLATELET COUNT 171 10^3/uL (130-450); RED CELL DISTRIBUTION WIDTH 18.4 % (12.0-15.0)
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
[2018-07-18 23:19] LABS: ACETAMINOPHEN < 10 ug/mL (10-30); ALBUMIN 3.7 g/dL (3.2-5.5); ALBUMIN/GLOBULIN RATIO 1.2 (1.0-2.2); ALKALINE PHOSPHATASE 62 IU/L (42-121); ALT ALANINE AMINOTRANSFERASE 47 IU/L (10-60); AST ASPARTATE AMINOTRANSFERASE 155 IU/L (10-42); BILIRUBIN,TOTAL 0.5 mg/dL (0.2-1.0); BUN - BLOOD UREA NITROGEN 10 mg/dL (6-20); CARBON DIOXIDE - CO2 23 mmol/L (21-32); CHLORIDE 105 mmol/L (101-111); CREATININE 0.4 mg/dL (0.4-1.0); GFR - MDRD 173 (>89); GLUCOSE 93 mg/dL (70-100); LIPASE 41 U/L (22-51); SALICYLATE < 6.0 mg/dL; SODIUM 142 mmol/L (135-145); TOTAL PROTEIN 6.9 g/dL (6.7-8.2)
[2018-07-18 23:34] LABS: BILIRUBIN,URINE NEGATIVE (NEGATIVE); GLUCOSE, URINE (UA) NEGATIVE (NEGATIVE); KETONES,URINE (UA) NEGATIVE (NEGATIVE); LEUKOCYTE ESTERASE, URINE NEGATIVE (NEGATIVE); NITRITE,URINE NEGATIVE (NEGATIVE); OCCULT BLOOD,URINE TRACE-INTA (NEGATIVE); PH,URINE 6.5 PH (5.0-7.5); PROTEIN,URINE NEGATIVE (NEGATIVE); UROBILINOGEN,URINE 0.2 (NORMAL) E.U./dL (NORMAL)
[2018-07-18 23:37] LABS: CLARITY,URINE CLEAR (CLEAR); HCG UR QUAL NEGATIVE
[2018-07-18 23:51] LABS: COCAINE SCREEN URINE NEGATIVE (NEGATIVE); METHAMPHETAMINES SCREEN, URINE NEGATIVE (NEGATIVE); MUDS CUTOFF CONCENTRATIONS CUTOFF CONC BELOW:; OPIATE SCREEN, URINE NEGATIVE (NEGATIVE)
[2018-07-18 23:52] LABS: AMPHETAMINE SCREEN,URINE POSITIVE (NEGATIVE); BENZODIAZEPINES SCREEN, URINE NEGATIVE (NEGATIVE); METHADONE SCREEN, URINE NEGATIVE (NEGATIVE); OXYCODONE SCREEN, URINE NEGATIVE (NEGATIVE); PROPOXYPHENE SCREEN, URINE NEGATIVE (NEGATIVE); TRICYCLIC ANTIDEPRESSANT,URINE NEGATIVE (NEGATIVE)
[2018-07-19] MEDS ORDERED: PANTOPRAZOLE 40 MG VIAL IVP STA (00:50)
[2018-07-19 01:23] LABS: PHOSPHORUS 2.7 mg/dL (2.5-4.6)
[2018-07-19] MEDS ORDERED: QUEtiapine 25 MG TABLET PO STA (02:44)
--- NOTE | 2018-07-19 10:59 | ED Physician Documentation ---
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 : None HEENT: Dental implants Psych: Depression, Anxiety, Eating disorder Musculoskeletal: None Derm: None - Past Surgical History Past Surgical History: Yes General: Bowel surgery Ortho: Other - Present Medications Home Medications: Ambulatory Orders Medication Instructions Recorded Confirmed Desvenlafaxine Succinate [Pristiq 100 mg PO DAILY 10/21/14 06/21/18 ER] Lisdexamfetamine Dimesylate 50 mg PO 0800,1200 10/21/14 06/21/18 [Vyvanse] Quetiapine Fumarate [Seroquel] 50 mg PO QPM 10/21/14 06/21/18 Spironolactone 150 mg PO DAILY 10/21/14 06/21/18 Ondansetron Odt [Zofran] 4 mg TL Q6H PRN #10 tablet 05/07/18 06/21/18 Acyclovir 400 mg PO 06/21/18 Dextroamphetamine/Amphetamine 06/21/18 [Adderall 10 mg Tablet] Esomeprazole Magnesium [Nexium] 40 mg PO 06/21/18 06/21/18 Milk Thistle 06/21/18 Prazosin HCl [Minipress] 2 mg PO 06/21/18 raNITIdine [Zantac] 300 mg PO BID 06/21/18 06/21/18 - Allergies Allergies/Adverse Reactions: Allergies Allergy/AdvReac Type Severity Reaction Status Date / Time acetaminophen [From Lortab] Allergy Itching Verified 07/18/18 22:58 hydrocodone bitartrate * Allergy Itching Verified 07/18/18 22:58 [From Lortab] prednisone AdvReac Unknown Verified 07/18/18 22:58 - Social History Does the pt smoke?: Yes Smoking Status: Current every day smoker Does the pt drink ETOH?: No Does the pt have substance abuse?: No - Immunizations Immunizations are current?: No - POLST Patient has POLST: No Results - Vitals Vitals: Vital Signs - 24 hr 07/18/18 07/18/18 07/18/18 22:44 23:03 23:31 Temperature 37.0 C Heart Rate 75 75 77 Respiratory 16 14 14 Rate Blood Pressure 138/97 H 141/97 H O2 Saturation 100 99 100 07/19/18 07/19/18 07/19/18 00:04 00:59 01:41 Temperature Heart Rate 76 76 Respiratory 17 16 14 Rate Blood Pressure 116/80 O2 Saturation 100 99 07/19/18 07/19/18 07/19/18 02:00 02:09 02:53 Temperature Heart Rate 73 72 69 Respiratory 16 14 17 Rate Blood Pressure 122/80 O2 Saturation 100 100 99 07/19/18 07/19/18 07/19/18 04:02 05:27 06:21 Temperature Heart Rate 77 78 68 Respiratory 15 15 14 Rate Blood Pressure 110/67 115/81 H 112/82 H O2 Saturation 100 100 100 07/19/18 08:44 Temperature 36.6 C Heart Rate 72 Respiratory 16 Rate Blood Pressure 118/85 H O2 Saturation 100 Oxygen O2 Source Room air - Labs Labs: Laboratory Tests 07/18/18 07/18/18 07/18/18 22:58 22:58 22:58 WBC 3.0 L RBC 4.50 Hgb 12.7 Hct 38.3 MCV 85.2 MCH 28.2 MCHC 33.1 RDW 18.4 H Plt Count 171 MPV 8.4 Neut # (Auto) 1.8 Lymph # (Auto) 0.9 L [place] # (Auto) 0.2 Eos # (Auto) 0.0 Baso # (Auto) 0.1 Absolute Nucleated RBC 0.00 Nucleated RBC % 0.0 Sodium 142 Potassium 3.8 Chloride 105 Carbon Dioxide 23 Anion Gap 14.0 H BUN 10 Creatinine 0.4 Estimated GFR (MDRD) 173 Glucose 93 Calcium 8.0 L Phosphorus Magnesium Total Bilirubin 0.5 AST 155 H ALT 47 Alkaline Phosphatase 62 Total Protein 6.9 Albumin 3.7 Globulin 3.2 Albumin/Globulin Ratio 1.2 Lipase 41 TSH 0.51 Urine Color Urine Clarity Urine pH Ur Specific [place] Urine Protein Urine Glucose (UA) Urine Ketones Urine Occult Blood Urine Nitrite Urine Bilirubin Urine Urobilinogen Ur Leukocyte Esterase Ur Microscopic Review Urine Culture Comments Urine HCG, Qual Salicylates < 6.0 Urine Opiates Screen Ur Oxycodone Screen Urine Methadone Screen Ur Propoxyphene Screen Acetaminophen < 10 L Ur Barbiturates Screen Ur Tricyclics Screen Ur Phencyclidine Scrn Ur Amphetamine Screen U Methamphetamines Scrn U Benzodiazepines Scrn Urine Cocaine Screen U Cannabinoids Screen Ethyl Alcohol 367.2 07/18/18 07/18/18 07/18/18 22:58 23:30 23:30 WBC RBC Hgb Hct MCV MCH MCHC RDW Plt Count MPV Neut # (Auto) Lymph # (Auto) [place] # (Auto) Eos # (Auto) Baso # (Auto) Absolute Nucleated RBC Nucleated RBC % Sodium Potassium Chloride Carbon Dioxide Anion Gap BUN Creatinine Estimated GFR (MDRD) Glucose Calcium Phosphorus 2.7 Magnesium 2.0 Total Bilirubin AST ALT Alkaline Phosphatase Total Protein Albumin Globulin Albumin/Globulin Ratio Lipase TSH Urine Color YELLOW Urine Clarity CLEAR Urine pH 6.5 Ur Specific [place] <=1.005 Urine Protein NEGATIVE Urine Glucose (UA) NEGATIVE Urine Ketones NEGATIVE Urine Occult Blood TRACE-INTA Urine Nitrite NEGATIVE Urine Bilirubin NEGATIVE Urine Urobilinogen 0.2 (NORMAL) Ur Leukocyte Esterase NEGATIVE Ur Microscopic Review NOT INDICATED Urine Culture Comments NOT INDICATED Urine HCG, Qual NEGATIVE Salicylates Urine Opiates Screen NEGATIVE Ur Oxycodone Screen NEGATIVE Urine Methadone Screen NEGATIVE Ur Propoxyphene Screen NEGATIVE Acetaminophen Ur Barbiturates Screen NEGATIVE Ur Tricyclics Screen NEGATIVE Ur Phencyclidine Scrn NEGATIVE Ur Amphetamine Screen POSITIVE H U Methamphetamines Scrn NEGATIVE U Benzodiazepines Scrn NEGATIVE Urine Cocaine Screen NEGATIVE U Cannabinoids Screen NEGATIVE Ethyl Alcohol Departure - Departure Disposition: 01 Home, Self Care Clinical Impression: Alcohol intoxication Qualifiers: Complication of substance-induced condition: uncomplicated Qualified Code(s): F10.920 - Alcohol use, unspecified with intoxication, uncomplicated Condition: Stable Instructions: ED Alcohol Intoxication Follow-Up: SATNAM DUNN MD [Physician No Access] -
[2018-07-19 11:10] VITALS: BP 139/85
== END 2018-07-19 11:11 | disposition home or self-care (01) ==
LOC: EDUNIT# → ED 22:40
DX: F10.920 Alcohol use, unspecified with intoxication, uncomplicated (principal); F17.200 Nicotine dependence, unspecified, uncomplicated
CPT/HCPCS: 36415; 80320; 80329; 81003; 81025; 83690; 83735; 84100; 93005; 96374; 99284; 99285; A9270; 80053; 80306; 80307; 81001; 84443; 85025; 87086

== ENCOUNTER 2018-09-24 04:06 | Outpatient (CLI) | payer BC | END 2018-09-24 04:07 | disposition critical access hospital (66) | LOC: EMS 04:06 | PROVIDERS: ATTEND Surgery | DX: R45.851 Suicidal ideations (principal) | CPT/HCPCS: A0425; A0429 ==

== ENCOUNTER 2018-09-24 04:13 | Emergency (ER) | payer BC ==
[2018-09-24] MEDS ORDERED: SODIUM CHLORIDE 0.9% 1,000 ML IV ONE (04:37)
[2018-09-24] MEDS ORDERED: OLANZapine 10 MG VIAL IM STA (04:43)
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
[2018-09-24 05:37] LABS: BASOPHILS # (AUTO) 0.1 10^3/uL (0.0-0.1); BASOPHILS % (AUTO) 1.4 %; EOSINOPHILS # (AUTO) 0.3 10^3/uL (0.0-0.7); EOSINOPHILS % (AUTO) 4.3 %; HGB - HEMOGLOBIN 12.7 g/dL (12.0-16.0); LYMPHOCYTES # (AUTO) 1.8 10^3/uL (1.5-3.5); LYMPHOCYTES % (AUTO) 31.3 %; MEAN CORPUSCULAR HEMOGLOBIN 26.7 pg (27.0-31.0); MEAN CORPUSCULAR HGB CONC 32.1 g/dL (32.0-36.0); MEAN CORPUSCULAR VOLUME 83.4 fL (81.0-99.0); MEAN PLATELET VOLUME 10.9 fL (7.9-10.8); MONOCYTES # (AUTO) 0.4 10^3/uL (0.0-1.0); MONOCYTES % (AUTO) 7.5 %; NEUTROPHILS # (AUTO) 3.2 10^3/uL (1.5-6.6); PLT - PLATELET COUNT 269 10^3/uL (130-450); RED BLOOD COUNT 4.75 10^6/uL (4.20-5.40); RED CELL DISTRIBUTION WIDTH 18.5 % (12.0-15.0); WHITE BLOOD COUNT 5.8 x10^3/uL (4.8-10.8)
[2018-09-24 05:53] LABS: ACETAMINOPHEN < 10 ug/mL (10-30); ALBUMIN 3.9 g/dL (3.2-5.5); ALBUMIN/GLOBULIN RATIO 1.1 (1.0-2.2); ALKALINE PHOSPHATASE 65 IU/L (42-121); ALT ALANINE AMINOTRANSFERASE 38 IU/L (10-60); AST ASPARTATE AMINOTRANSFERASE 48 IU/L (10-42); BILIRUBIN,TOTAL 0.4 mg/dL (0.2-1.0); BUN - BLOOD UREA NITROGEN 11 mg/dL (6-20); CALCIUM 9.3 mg/dL (8.5-10.3); CARBON DIOXIDE - CO2 24 mmol/L (21-32); CHLORIDE 106 mmol/L (101-111); CREATININE 0.3 mg/dL (0.4-1.0); GFR - MDRD 242 (>89); GLUCOSE 96 mg/dL (70-100); LIPASE 47 U/L (22-51); SALICYLATE < 6.0 mg/dL; SODIUM 148 mmol/L (135-145); TOTAL PROTEIN 7.6 g/dL (6.7-8.2)
[2018-09-24 14:59] LABS: MUDS CUTOFF CONCENTRATIONS CUTOFF CONC BELOW:
[2018-09-24 15:06] LABS: BILIRUBIN,URINE NEGATIVE (NEGATIVE); GLUCOSE, URINE (UA) NEGATIVE (NEGATIVE); KETONES,URINE (UA) NEGATIVE (NEGATIVE); LEUKOCYTE ESTERASE, URINE NEGATIVE (NEGATIVE); NITRITE,URINE NEGATIVE (NEGATIVE); OCCULT BLOOD,URINE NEGATIVE (NEGATIVE); PROTEIN,URINE NEGATIVE (NEGATIVE); UROBILINOGEN,URINE 0.2 (NORMAL) E.U./dL (NORMAL)
[2018-09-24 15:15] LABS: CLARITY,URINE CLEAR (CLEAR)
[2018-09-24 15:18] LABS: AMPHETAMINE SCREEN,URINE POSITIVE (NEGATIVE); BENZODIAZEPINES SCREEN, URINE NEGATIVE (NEGATIVE); COCAINE SCREEN URINE NEGATIVE (NEGATIVE); METHADONE SCREEN, URINE NEGATIVE (NEGATIVE); METHAMPHETAMINES SCREEN, URINE NEGATIVE (NEGATIVE); OPIATE SCREEN, URINE NEGATIVE (NEGATIVE)
[2018-09-24 15:19] LABS: OXYCODONE SCREEN, URINE NEGATIVE (NEGATIVE); PROPOXYPHENE SCREEN, URINE NEGATIVE (NEGATIVE); TRICYCLIC ANTIDEPRESSANT,URINE NEGATIVE (NEGATIVE)
[2018-09-24 15:47] LABS: CALCIUM 8.9 mg/dL (8.5-10.3); CREATININE 0.5 mg/dL (0.4-1.0)
--- NOTE | 2018-09-24 17:46 | ED Physician Documentation ---
ED Addendum - Addendum Addendum: 09/24/18 17:45 43-year-old woman received in signout. Briefly she got very drunk last night and made some statements while she was intoxicated that brought her to the emergency department in restraints. Throughout my shift today she is been cooperative and calm. She is clinically and lab rodriguez sober at this point. I had a long discussion with her. She is not currently suicidal. She plans to go to her mother's house. She was offered social work consultation for inpatient treatment for either intoxication/alcoholism or depression which she declined.
[2018-09-24 17:52] VITALS: BP 155/100
[2018-09-24] MEDS ORDERED: MAG HYDROX/AL HYDROX/SIMETH 30 ML UDC PO STA (17:53)
== END 2018-09-24 17:58 | disposition home or self-care (01) ==
LOC: EDUNIT# → EDBD → ED 04:13
DX: F10.129 Alcohol abuse with intoxication, unspecified (principal); Y90.8 Blood alcohol level of 240 mg/100 ml or more; R45.851 Suicidal ideations; R45.1 Restlessness and agitation; E87.1 Hypo-osmolality and hyponatremia; F17.200 Nicotine dependence, unspecified, uncomplicated
CPT/HCPCS: 36415; 80048; 80053; 80320; 80329; 81003; 83690; 85025; 96360; 96372; 99281; 99284; A9270; 80306; 80307; 81001; 87086

== ENCOUNTER 2019-04-19 12:20 | Emergency (ER) | payer BC ==
[2019-04-19] MEDS ORDERED: FOLIC ACID INJ 1 MG, THIAMINE INJ 100 MG, MAGNESIUM SULFATE 2 GM, MULTIVITAMIN 10 ML in... IV STA ×5 (14:44)
[2019-04-19] MEDS ORDERED: LORazepam 2 MG/ML VIAL IVP STA ×2 (14:44→15:57)
[2019-04-19] MEDS ORDERED: ONDANSETRON 4 MG/2 ML VIAL IVP STA (14:44)
--- NOTE | 2019-04-19 14:46 | ED Physician Documentation ---
History of Present Illness - Stated complaint Stated Complaint: N/V, ANXIETY - Chief complaint Chief Complaint: Abd Pain - History obtained from History obtained from: Patient, Family - History of Present Illness Timing: How many days ago (4) - Additonal information Additional information: 43-year-old female with a history of alcohol abuse has developed nausea and vomiting after discontinuing alcohol about 4 days ago. She had to drink some yesterday to control her symptoms of anxiety and shortness of breath and she is come now to the emergency department wanting to stop drinking. She is been in treatment before she was sober for a brief period of time and she would like to consider longer term treatment. She has required detox on her last treatment. Review of Systems Constitutional: denies: Fever Eyes: denies: Decreased vision Ears: denies: Ear pain Nose: denies: Rhinorrhea / runny nose, Congestion Throat: denies: Sore throat Cardiac: reports: Chest pain / pressure, Palpitations. denies: Pedal edema, Calf pain Respiratory: reports: Dyspnea. 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 SERVICES MANAGER: None : None HEENT: Dental implants Psych: Depression, Anxiety, Eating disorder Musculoskeletal: None Derm: None - Past Surgical History Past Surgical History: Yes General: Bowel surgery Ortho: Other - Present Medications Home Medications: Ambulatory Orders Medication Instructions Recorded Confirmed Desvenlafaxine Succinate [Pristiq 100 mg PO DAILY 10/21/14 06/21/18 ER] Lisdexamfetamine Dimesylate 50 mg PO 0800,1200 10/21/14 06/21/18 [Vyvanse] Quetiapine Fumarate [Seroquel] 50 mg PO QPM 10/21/14 06/21/18 Spironolactone 150 mg PO DAILY 10/21/14 06/21/18 Ondansetron Odt [Zofran] 4 mg TL Q6H PRN #10 tablet 05/07/18 06/21/18 Acyclovir 400 mg PO 06/21/18 Dextroamphetamine/Amphetamine 06/21/18 [Adderall 10 mg Tablet] Esomeprazole Magnesium [Nexium] 40 mg PO 06/21/18 06/21/18 Milk Thistle 06/21/18 Prazosin HCl [Minipress] 2 mg PO 06/21/18 raNITIdine [Zantac] 300 mg PO BID 06/21/18 06/21/18 - Allergies Allergies/Adverse Reactions: Allergies Allergy/AdvReac Type Severity Reaction Status Date / Time prednisone AdvReac Hallucinati Verified 04/19/19 12:28 ons - Social History Does the pt smoke?: Yes Smoking Status: Current every day smoker Does the pt drink ETOH?: No Does the pt have substance abuse?: No - Immunizations Immunizations are current?: No - POLST Patient has POLST: No PD ED PE NORMAL - Vitals Vital signs reviewed: Yes - General General: Alert and oriented X 3, Well developed/nourished, Other (appears anxoius with emesis basin in hand) - HEENT HEENT: Atraumatic, PERRL, EOMI - Neck Neck: Supple, no meningeal sign, No bony TTP - Cardiac Cardiac: No murmur, Other (tachy to 100) - Respiratory Respiratory: No respiratory distress, Clear bilaterally - Abdomen Abdomen: Normal bowel sounds, Soft, Non tender, Non distended, No organomegaly - Back Back: No CVA TTP, No spinal TTP - Derm Derm: Normal color, Warm and dry, No rash - Extremities Extremities: No deformity, No edema - Neuro Neuro: Alert and oriented X 3, device test engineer 2-12 intact, No motor deficit, No sensory deficit, Normal speech Eye Opening: Spontaneous Motor: Obeys Commands Verbal: Oriented GCS Score: 15 - Psych Psych: Normal mood, Normal affect Results - Vitals Vitals: Vital Signs - 24 hr 04/19/19 04/19/19 04/19/19 12:24 14:52 15:47 Temperature 36.7 C Heart Rate 106 H 84 78 Respiratory 22 16 16 Rate Blood Pressure 108/87 H 105/78 110/88 H O2 Saturation 100 98 96 04/19/19 16:22 Temperature Heart Rate 74 Respiratory 14 Rate Blood Pressure 117/86 H O2 Saturation 98 Oxygen O2 Source Room air - Labs Labs: Laboratory Tests 04/19/19 04/19/19 04/19/19 14:45 14:45 14:45 WBC 5.0 RBC 4.47 Hgb 10.4 L Hct 33.9 L MCV 75.8 L MCH 23.3 L MCHC 30.7 L RDW 21.2 H Plt Count 135 MPV 9.7 Neut # (Auto) 3.7 Lymph # (Auto) 0.6 L [place] # (Auto) 0.6 Eos # (Auto) 0.1 Baso # (Auto) 0.1 Absolute Nucleated RBC 0.00 Nucleated RBC % 0.0 Manual Slide Review Indicated Platelet Estimate NORMAL (130-450,000) Platelet Morphology 1+ LARGE PLATELETS RBC Morph Micro Appear 2+ TARGET CELLS PT 10.4 INR 0.9 Sodium 134 L Potassium 3.1 L Chloride 90 L Carbon Dioxide 31 Anion Gap 13.0 BUN 15 Creatinine 0.4 Estimated GFR (MDRD) 173 Glucose 124 H Calcium 9.8 Total Bilirubin 0.4 AST 155 H ALT 62 H Alkaline Phosphatase 72 Total Protein 7.4 Albumin 4.3 Globulin 3.1 Albumin/Globulin Ratio 1.4 Lipase 53 H Ethyl Alcohol 5.6 Procedures - IVC sono (time) 1444 Bedside IVC sono: IVC measures (cm) (1.32), IVC collapsed c insp (cm) (complete), Dehydration (less than one liter deficit) PD MEDICAL DECISION MAKING - ED course Complexity details: reviewed old records, reviewed results, re-evaluated patient, considered differential, d/w patient, d/w family ED course: 43-year-old alcoholic female withdrawing from alcohol is given a banana bag intravenous and 1 mg of Ativan intravenously and elementary school social worker is consulted for potential detox. Worker is able to secure a bed for medical detox at [facility] in [place] the patient is voluntarily going and is not acutely intoxicated. She does have a family member to drive her to [facility]. Departure - Departure Disposition: 01 Home, Self Care Clinical Impression: Alcohol withdrawal Qualifiers: Complication of substance-induced condition: uncomplicated Qualified Code(s): F10.230 - Alcohol dependence with withdrawal, uncomplicated Condition: Stable Instructions: ED Withdrawal Alcohol Follow-Up: SATNAM DUNN MD [Primary Care Provider] - Comments: Follow-up with the [facility] alcohol detox facility today as outlined by the elementary school social worker.
[2019-04-19 14:55] LABS: BASOPHILS # (AUTO) 0.1 10^3/uL (0.0-0.1); BASOPHILS % (AUTO) 1.8 %; EOSINOPHILS # (AUTO) 0.1 10^3/uL (0.0-0.7); EOSINOPHILS % (AUTO) 1.6 %; HGB - HEMOGLOBIN 10.4 g/dL (12.0-16.0); LYMPHOCYTES # (AUTO) 0.6 10^3/uL (1.5-3.5); LYMPHOCYTES % (AUTO) 11.2 %; MEAN CORPUSCULAR HEMOGLOBIN 23.3 pg (27.0-31.0); MEAN CORPUSCULAR HGB CONC 30.7 g/dL (32.0-36.0); MEAN CORPUSCULAR VOLUME 75.8 fL (81.0-99.0); MEAN PLATELET VOLUME 9.7 fL (7.9-10.8); MONOCYTES # (AUTO) 0.6 10^3/uL (0.0-1.0); MONOCYTES % (AUTO) 11.2 %; NEUTROPHILS # (AUTO) 3.7 10^3/uL (1.5-6.6); NEUTROPHILS % (AUTO) 73.8 %; PLT - PLATELET COUNT 135 10^3/uL (130-450); RED BLOOD COUNT 4.47 10^6/uL (4.20-5.40); RED CELL DISTRIBUTION WIDTH 21.2 % (12.0-15.0)
[2019-04-19 15:06] LABS: ALBUMIN 4.3 g/dL (3.2-5.5); ALBUMIN/GLOBULIN RATIO 1.4 (1.0-2.2); BILIRUBIN,TOTAL 0.4 mg/dL (0.2-1.0); CALCIUM 9.8 mg/dL (8.5-10.3); CREATININE 0.4 mg/dL (0.4-1.0); TOTAL PROTEIN 7.4 g/dL (6.7-8.2)
[2019-04-19 15:08] LABS: INR 0.9 (0.8-1.2); PT - PROTHROMBIN TIME 10.4 secs (9.9-12.6)
[2019-04-19 15:35] LABS: PLATELET ESTIMATE, MANUAL NORMAL (130-450,000) (NORMAL); PLATELET MORPHOLOGY 1+ LARGE PLATELETS (NORMAL)
[2019-04-19] MEDS ORDERED: POTASSIUM CHLORIDE 20 MEQ TABLET PO STA (15:39)
[2019-04-19 16:23] VITALS: BP 117/86
== END 2019-04-19 17:58 | disposition home or self-care (01) ==
LOC: ED 12:20
DX: F10.230 Alcohol dependence with withdrawal, uncomplicated (principal); F17.210 Nicotine dependence, cigarettes, uncomplicated
CPT/HCPCS: 36415; 80053; 80320; 83690; 85025; 85610; 96365; 96375; 96376; 99283; 99284; A9270; J2060; J3411

== ENCOUNTER 2019-05-26 18:01 | Outpatient (CLI) | payer BC | END 2019-05-26 18:02 | disposition home or self-care (01) | LOC: COV 18:01 | PROVIDERS: ATTEND Family Medicine | DX: R05 Cough (principal); R50.9 Fever, unspecified; R06.02 Shortness of breath | CPT/HCPCS: 81599 ==